=== PATIENT | female | born 1995 | race Caucasian/White ===

== ENCOUNTER 2021-10-12 19:09 | Emergency (ER) | payer SELFPAY ==
[2021-10-12] MEDS ORDERED: Diphtheria,Pertussis(Acell),Tetanus Vaccine 0.5 ML Syringe IM ONE (21:20)
[2021-10-12] MEDS ORDERED: Lidocaine 1% 5 ML VIAL INJECT ONE (21:34)
== END 2021-10-12 22:16 | disposition home or self-care (01) ==
LOC: MW.ED 19:09
DX: S91.312A Laceration without foreign body, left foot, initial encounter (principal); Z23 Encounter for immunization; W22.8XXA Striking against or struck by other objects, initial encounter
CPT/HCPCS: 12001; 90471; 90715; 99282; 99282-25